=== PATIENT | male | born 1990 | race Hispanic/Latino ===

== ENCOUNTER 2017-08-08 21:44 | Emergency (ER) | payer SELFPAY ==
[~2017-08-08] VITALS: Ht 167.6 cm; Wt 69.1 kg
[2017-08-08 22:47] VITALS: BP 00/00
== END 2017-08-08 22:47 ==
LOC: EXP 21:44 → EME 21:44 → EXP 22:47
DX: F10.129 Alcohol abuse with intoxication, unspecified (principal); Y90.9 Presence of alcohol in blood, level not specified; Z02.89 Encounter for other administrative examinations
CPT/HCPCS: 99281; 99282